=== PATIENT | female | born 2000 | race Two or more races ===

== ENCOUNTER → 2021-10-19 | Outpatient (CLI) | payer OTHER ==
[2021-10-19 18:51] LABS: HEMATOCRIT 42.1 % (36.0-47.0); MEAN CORPUSCULAR HEMOGLOBIN 30.3 pg (27.0-33.0); MEAN CORPUSCULAR HGB CONC 33.3 g/dl (32.0-36.5); MEAN CORPUSCULAR VOLUME 91.1 fl (80.0-96.0); PLATELET COUNT, AUTOMATED 353 10^3/uL (150-450); RED BLOOD COUNT 4.62 10^6/uL (4.00-5.40); WHITE BLOOD COUNT 13.6 10^3/uL (4.0-10.0)
[2021-10-19 20:33] LABS: HEPATITIS C VIRUS ABY INDEX < 0.0 INDEX (<0.8); HIV 1&2 SCREEN CENTAUR NEGATIVE (NEGATIVE)
[2021-10-20 10:47] LABS: GC DNA AMPLIFICATION NEGATIVE (NEGATIVE)
== END ==
LOC: M PLALAB 15:06
PROVIDERS: ATTEND Obstetrics & Gynecology
DX: Z36.9 Encounter for antenatal screening, unspecified (principal)

== ENCOUNTER → 2021-12-02 | Outpatient (CLI) | payer OTHER | LOC: M WHC 10:12 | PROVIDERS: ATTEND Obstetrics & Gynecology | DX: Z34.02 Encounter for supervision of normal first pregnancy, second trimester (principal); Z3A.20 20 weeks gestation of pregnancy ==

== ENCOUNTER → 2022-01-10 | Outpatient (CLI) | payer OTHER ==
[2022-01-10 14:35] LABS: HEMATOCRIT 37.1 % (36.0-47.0); MEAN CORPUSCULAR HEMOGLOBIN 30.6 pg (27.0-33.0); MEAN CORPUSCULAR HGB CONC 32.3 g/dl (32.0-36.5); MEAN CORPUSCULAR VOLUME 94.6 fl (80.0-96.0); PLATELET COUNT, AUTOMATED 327 10^3/uL (150-450); RED BLOOD COUNT 3.92 10^6/uL (4.00-5.40)
== END ==
LOC: M PLALAB 08:37
PROVIDERS: ATTEND Advanced Practice Midwife
DX: Z34.82 Encounter for supervision of other normal pregnancy, second trimester (principal); Z3A.00 Weeks of gestation of pregnancy not specified

== ENCOUNTER → 2022-03-20 | Outpatient (REF) | payer OTHER | LOC: M SFHCWAGY 13:02 | PROVIDERS: ATTEND Advanced Practice Midwife | DX: Z34.03 Encounter for supervision of normal first pregnancy, third trimester (principal) ==

== ENCOUNTER 2022-04-18 09:02 | Inpatient (IN) | payer OTHER ==
[2022-04-18] VITALS (38 sets, daily range): BP systolic 104–191; BP diastolic 56–95
[~2022-04-18] VITALS: Ht 177.8 cm; Wt 126.3 kg
[2022-04-18] MEDS ORDERED: ACET-897 PO (09:31)
[2022-04-18] MEDS ORDERED: TUMS500C PO (09:31)
[2022-04-18] MEDS ORDERED: PRENTAB9 PO (09:31)
[2022-04-18] MEDS ORDERED: ONDA4TAB6 PO (09:31)
[2022-04-18] MEDS ORDERED: LACTATED RINGER'S 1000 ML IV STA (09:43)
[2022-04-18] MEDS ORDERED: CARBOPROST TROMETHAMINE 250 MCG/ML AMP IM PRN (09:45)
[2022-04-18] MEDS ORDERED: METHYLERGONOVINE MALEATE 0.2MG/ML 1ML VIAL IM PRN (09:45)
[2022-04-18] MEDS ORDERED: TRANEXAMIC ACID INJection 1,000 MG in NS 100 ML IV PRN (09:45)
[2022-04-18] MEDS ORDERED: HOME MED LIST COMPLETE! XX SCH (10:05)
[2022-04-18 10:26] LABS: HEMATOCRIT 34.3 % (36.0-47.0); MEAN CORPUSCULAR HEMOGLOBIN 27.6 pg (27.0-33.0); MEAN CORPUSCULAR HGB CONC 32.1 g/dl (32.0-36.5); PLATELET COUNT, AUTOMATED 330 10^3/uL (150-450); RED BLOOD COUNT 3.99 10^6/uL (4.00-5.40); WHITE BLOOD COUNT 10.3 10^3/uL (4.0-10.0)
[2022-04-18 10:39] LABS: URIC ACID 6.4 MG/DL (3.1-7.8)
[2022-04-18 10:41] LABS: LDH LACTATE DEHYDROGENASE 172 U/L (120-246)
[2022-04-18 10:42] LABS: ALT/SGPT 26 U/L (7.0-40); AST/SGOT 23 U/L (<34); BILIRUBIN,TOTAL 0.4 MG/DL (0.3-1.2); CREATININE FOR GFR 0.44 MG/DL (0.55-1.30); GLOMERULAR FILTRATION RATE > 60.0 (>60)
[2022-04-18] MEDS ORDERED: miSOPROStol 50MCG 1/2 TABLET PO ONE ×2 (11:45→16:55)
[2022-04-18] MEDS ORDERED: LR 500 ML IV PRN (21:50)
[2022-04-18] MEDS ORDERED: diphenhydrAMINE 50MG/ML VIAL IV PRN (21:50)
[2022-04-18] MEDS ORDERED: EPIDURAL/PCA KEYS XX PRN (21:50)
[2022-04-18] MEDS ORDERED: NALOXONE INJ 0.4MG/1ML VIAL IV PRN (21:50)
[2022-04-18] MEDS ORDERED: ONDANSETRON 4MG 2ML VIAL IV PRN (21:50)
[2022-04-18] MEDS ORDERED: LR 1,000 ML IV ONE (21:55)
[2022-04-18] MEDS ORDERED: OXYTOCIN DRIP 30 UNITS in IV 1 EA IV SCH (21:55)
[2022-04-18] MEDS: LR 1,000 ML IV SCH (22:04)
[2022-04-18] MEDS: FENTANYL/ROPIVACAINE/NACL BAG 100 ML EPIDURAL SCH (22:35)
[2022-04-19] VITALS (63 sets, daily range): BP systolic 80–161; BP diastolic 41–86
[2022-04-19] MEDS: ePHEDrine SULFATE 25 MG/5 ML(5MG/ML) SYRINGE IVP PRN ×9 (00:44→06:24)
[2022-04-19] MEDS: LR 1,000 ML IV SCH ×2 (04:29→05:36)
[2022-04-19] MEDS ORDERED: LACTATED RINGER'S 1000 ML IV ONE (06:05)
[2022-04-19] MEDS: FENTANYL/ROPIVACAINE/NACL BAG 100 ML EPIDURAL SCH (06:18)
[2022-04-19] MEDS ORDERED: METHYLERGONOVINE MALEATE 0.2 MG TAB PO PRN (10:05)
[2022-04-19] MEDS ORDERED: IBUPROFEN 600MG TAB PO PRN (10:05)
[2022-04-19] MEDS ORDERED: OXYTOCIN DRIP 30 UNITS in IV 1 EA IV SCH (10:05)
[2022-04-19] MEDS ORDERED: RHOGAM 300MCG (1500IU) INJ IM SCH (10:05)
[2022-04-19] MEDS ORDERED: DIBUCAINE 1% OINTMENT 30GM TOP PRN (10:05)
[2022-04-19] MEDS ORDERED: IBUPROFEN 800 MG TAB PO PRN (10:05)
[2022-04-19] MEDS ORDERED: ACETAMINOPHEN 500 MG TAB PO PRN (10:05)
[2022-04-19] MEDS ORDERED: ACETAMINOPHEN TAB 650MG DOSE (2X325MG) PO PRN (10:05)
[2022-04-19] MEDS ORDERED: DOCUSATE SODIUM 100MG CAPSULE PO PRN (10:05)
[2022-04-19] MEDS: PRENATAL VITAMINS CHEWABLE TABLET PO SCH (12:18)
[2022-04-20] MEDS: PRENATAL VITAMINS CHEWABLE TABLET PO SCH (07:57)
[2022-04-20 18:00] VITALS: BP 131/71
[2022-04-21 06:00] VITALS: BP 91/54
[2022-04-21] MEDS: PRENATAL VITAMINS CHEWABLE TABLET PO SCH (08:23)
[2022-04-21] MEDS ORDERED: MEASLES,MUMPS,RUBELLA VACCINE INJ (MMR-II) SC.IMMUN ONE (09:00)
== END 2022-04-21 16:00 | disposition home or self-care (01) | DRG 560 ==
LOC: M LDI 09:02 → M OBS 04-19 13:31
PROVIDERS: ADMIT Obstetrics & Gynecology; ATTEND Obstetrics & Gynecology
PROC: 3E033VJ Introduction of Other Hormone into Peripheral Vein, Percutaneous Approach (ICD-10-PCS; 2022-04-18)
PROC: 10E0XZZ Delivery of Products of Conception, External Approach (ICD-10-PCS; principal; 2022-04-19)
DX: O41.03X0 Oligohydramnios, third trimester, not applicable or unspecified (principal); Z88.0 Allergy status to penicillin; Z37.0 Single live birth; Z3A.39 39 weeks gestation of pregnancy; Z88.8 Allergy status to other drugs, medicaments and biological substances

== ENCOUNTER → 2022-04-18 | Outpatient (CLI) | payer OTHER ==
[~2022-04-18] MED LIST: ACET-897 PO; ONDA4TAB6 PO; PRENTAB9 PO; TUMS500C PO
== END ==
LOC: M WHC 07:47
PROVIDERS: ATTEND Advanced Practice Midwife
DX: O99.810 Abnormal glucose complicating pregnancy (principal)